=== PATIENT | male | born 1960 | race Caucasian/White ===

== ENCOUNTER 2023-09-04 09:05 | Day surgery (SDC) | payer BC, OTHER ==
[~2023-09-04 09:05] MED LIST: Lactated Ringers 1,000 ML IV SCH; Sodium Chloride 0.9% 10 ML Syringe FLUSH PRN; Sodium Chloride 0.9% 10 ML Syringe FLUSH SCH
[2023-09-04] MEDS ORDERED: Gabapentin 300 MG Cap PO SCH (09:22)
[2023-09-04] MEDS ORDERED: Acetaminophen 325 MG Tab PO SCH (09:22)
[2023-09-04] MEDS ORDERED: Lidocaine 2% 100 MG/5 ML Syringe ONE ×2 (09:40→09:41)
[2023-09-04] MEDS ORDERED: Midazolam 1 MG/ML 2 ML SDV ONE (09:41)
[2023-09-04] MEDS ORDERED: fentaNYL 100 MCG/2 ML SDV ONE (09:41)
[2023-09-04] MEDS ORDERED: Propofol 200 MG/20 ML SDV ONE ×2 (09:41→10:22)
[2023-09-04] MEDS ORDERED: EPINEPHrine 1 MG/ML SDV ONE (09:46)
[2023-09-04] MEDS ORDERED: Lidocaine 1% 30 ML SDV ONE (09:46)
[2023-09-04] MEDS ORDERED: Bupivacaine 0.25% 10 ML SDV ONE (09:46)
[2023-09-04] MEDS ORDERED: fentaNYL 100 MCG/2 ML SDV IVPUSH PRN (09:57)
[2023-09-04] MEDS ORDERED: HYDROmorphone 0.5 MG/0.5 ML Syringe IVPUSH PRN (09:57)
[2023-09-04] MEDS ORDERED: Ondansetron 4 MG/2 ML SDV IVPUSH PRN (09:57)
[2023-09-04] MEDS ORDERED: Bupivacaine 0.5% 30 ML SDV ONE (09:59)
[2023-09-04] MEDS ORDERED: ceFAZolin 2 GM Vial ONE (10:22)
== END 2023-09-04 11:50 | disposition home or self-care (01) ==
LOC: JD.SDS 09:05
PROVIDERS: ATTEND Surgery
DX: C44.719 Basal cell carcinoma of skin of left lower limb, including hip (principal); R00.9 Unspecified abnormalities of heart beat; I50.9 Heart failure, unspecified; I42.9 Cardiomyopathy, unspecified; F17.210 Nicotine dependence, cigarettes, uncomplicated; Z79.82 Long term (current) use of aspirin; Z79.899 Other long term (current) drug therapy; Z91.018 Allergy to other foods
CPT/HCPCS: 11606; A9270; J0171; J0690; J2250; J2704; J3010; J3490; J7120; 00400

== ENCOUNTER 2024-06-16 05:01 | Emergency (ER) | payer OTHER ==
[2024-06-16] MEDS: Sodium Chloride 0.9% 1,000 ML IV ONE (05:34)
[2024-06-16] MEDS: Morphine 4 MG/ML Syringe IVPUSH ONE ×2 (05:34→08:05)
[2024-06-16 06:02] LABS: BASOPHILS ABSOLUTE AUTO 0.1 K/mm3 (0.0-0.2); BASOPHILS PERCENT AUTO 0.3 % (0.0-1.0); EOSINOPHILS ABSOLUTE AUTO 0.4 K/mm3 (0.0-0.4); EOSINOPHILS PERCENT AUTO 2.2 % (0.0-6.0); HEMATOCRIT 48.1 % (42.0-52.0); HEMOGLOBIN 16.3 gm/dl (14.0-18.0); IMMATURE GRAN ABSOLUTE AUTO 0.08 K/mm3 (0.00-0.05); IMMATURE GRAN PERCENT AUTO 0.5 % (0.0-0.4); LYMPHOCYTES ABSOLUTE AUTO 2.3 K/mm3 (1.0-4.8); MEAN CORPUSCULAR HEMOGLOBIN 32.1 pg (28.0-32.0); MEAN CORPUSCULAR HGB CONC 33.9 g/dl (32.0-36.0); MEAN CORPUSCULAR VOLUME 94.9 fl (83.0-99.0); MEAN PLATELET VOLUME 10.2 fl (9.4-12.4); MONOCYTES ABSOLUTE AUTO 1.2 K/mm3 (0.0-0.8); MONOCYTES PERCENT AUTO 6.9 % (0.0-8.0); NEUTROPHILS ABSOLUTE AUTO 13.7 K/mm3 (1.8-7.7); NEUTROPHILS PERCENT AUTO 77.1 % (41.0-71.0); PLATELET COUNT,PLT 236 K/mm3 (150-400); RED BLOOD CELL COUNT 5.07 M/mm3 (4.52-5.90); WHITE BLOOD CELL COUNT,WBC 17.74 K/mm3 (3.9-11.3)
[2024-06-16] MEDS: Sodium Chloride 0.9% 100 ML IV SCH (06:04)
[2024-06-16] MEDS: Iopamidol 755 Mg/ML 100 ML Bottle IVPUSH ONE (06:04)
[2024-06-16 06:09] LABS: INR 0.97; PROTHROMBIN TIME 10.3 SECONDS (9.7-12.0)
[2024-06-16 06:11] LABS: PTT,PARTIAL THROMBOPLSTIN TIME 27.7 SECONDS (21.7-31.4)
[2024-06-16 06:12] LABS: ALANINE AMINOTRANSFERASE,ALT 21 U/L (16-63); ALBUMIN 3.7 g/dl (3.4-5.0); ALKALINE PHOSPHATASE 110 U/L (46-116); ANION GAP 13.1 (5-15); ASPARTATE AMNIOTRANSFERASE,AST 15 U/L (15-37); BILIRUBIN TOTAL 0.4 mg/dL (0.2-1.0); BLOOD UREA NITROGEN,BUN 14 mg/dL (7-18); CALCIUM 9.2 mg/dL (8.5-10.1); CARBON DIOXIDE,CO2 26 mEq/L (21-32); CHLORIDE,CL 104 mEq/L (98-107); ESTIMATED GFR 84 mL/min (>60); GLUCOSE RANDOM 98 mg/dL (70-99); LIPASE 56 U/L (16-77); MAGNESIUM 1.9 mg/dL (1.8-2.4); POTASSIUM,K 4.1 mEq/L (3.5-5.1); PROTEIN TOTAL,TP 7.4 g/dl (6.4-8.2); SODIUM,NA 139 mEq/L (136-145); TROPONIN I HIGH SENSITIVITY 12 pg/mL (<=76)
[2024-06-16 06:52] LABS: APPEARANCE,URINE CLEAR (Clear); BILIRUBIN,URINE NEGATIVE (Negative); COLOR,URINE LIGHT YELLOW (Yellow); GLUCOSE,URINE NEGATIVE (Negative); KETONES,URINE NEGATIVE (Negative); LEUKOCYTE ESTERASE,URINE NEGATIVE (Negative); NITRITE,URINE NEGATIVE (Negative); OCCULT BLOOD,URINE NEGATIVE (Negative); PH,URINE 6.5 (5.0-8.0); PROTEIN,URINE NEGATIVE (Negative); UROBILINOGEN,URINE 0.2 (0.2-1.0)
[2024-06-16] MEDS: Aspirin 81 MG Tab.Chew PO ONE (08:04)
[2024-06-16] MEDS: Metoclopramide 10 MG/2 ML SDV IVPUSH ONE ×2 (09:20→13:30)
[2024-06-16] MEDS: HYDROmorphone 1 MG/ML Syringe IVPUSH ONE (09:21)
[2024-06-16] MEDS: Sodium Chloride 0.9% 10 ML Syringe FLUSH PRN (09:21)
[2024-06-16] MEDS: Iopamidol 612 MG/ML 100 ML Bottle IVPUSH ONE (10:48)
[2024-06-16] MEDS: Sodium Chloride 0.9% 10 ML Syringe FLUSH ONE (10:48)
[2024-06-16] MEDS: Dextrose 5%-0.9% NaCl 1,000 ML IV SCH (11:07)
[2024-06-16] MEDS: Acetaminophen 325 MG Tab PO ONE (11:07)
[2024-06-16] MEDS: Piperacillin/Tazobactam 4.5 GM in Sodium Chloride 0.9% 100 ML IV ONE (11:55)
[2024-06-16 12:19] LABS: CORONAVIRUS COVID-19 NAA NEGATIVE (NEGATIVE); INFLUENZA A NAA NEGATIVE (NEGATIVE); RESPIRATORY SYNCYTIAL VIR NAA NEGATIVE (NEGATIVE)
[2024-06-16] MEDS: HYDROmorphone 0.5 MG/0.5 ML Syringe IVPUSH ONE (13:30)
== END 2024-06-16 16:10 | disposition home or self-care (01) ==
LOC: JD.ED 05:01 → UNDOADMIN 13:31 → JD.ICU 13:31 → JD.MS 13:31 → JD.ICU 15:34 → JD.ED 16:10
DX: R07.89 Other chest pain (principal); R10.13 Epigastric pain; K44.9 Diaphragmatic hernia without obstruction or gangrene; C85.90 Non-Hodgkin lymphoma, unspecified, unspecified site; R50.9 Fever, unspecified; I11.0 Hypertensive heart disease with heart failure; I50.9 Heart failure, unspecified; Z79.82 Long term (current) use of aspirin; Z79.899 Other long term (current) drug therapy; Z91.018 Allergy to other foods
CPT/HCPCS: 0241U; 36415; 71275; 74177; 80053; 81003; 83605; 83690; 83735; 83880; 84484; 85025; 85610; 85730; 86140; 87040; 93005; 96365; 96366; 96375; 96376; 99285; A9270; J1170; J2270; J2543; J2765; J3490; J7030; J7042; Q9967